=== PATIENT | female | born 1950 | race Caucasian/White ===

== ENCOUNTER 2019-10-24 13:21 | Outpatient (CLI) | payer MEDICARE, OTHER, SELFPAY ==
--- NOTE | 2019-10-24 13:24 | ECG_ITS ---
Measurements Intervals [place] Rate: 57 P: 19 [place]: 213 QRS: -22 QRSD: 96 T: 44 QT: 448 QTc: 438 Interpretive Statements SINUS BRADYCARDIA WITH FIRST DEGREE AV BLOCK ATRIAL PREMATURE COMPLEX LEFT VENTRICULAR HYPERTROPHY AND ST-T CHANGE BORDERLINE R WAVE PROGRESSION, ANTERIOR LEADS ABNORMAL ECG Electronically Signed On 10-24-2019 13:39:49 CDT by Willy Carver D.O.
[2019-10-24 13:57] LABS: Blood Urea Nitrogen 19 mg/dL (7-17); Calcium 9.7 mg/dL (8.4-10.2); Carbon Dioxide 30 mmol/L (22-30); Chloride 101 mmol/L (98-107); Estimated Glomerular Filt Rate 49; Glucose 129 mg/dL (65-105); Potassium 3.9 mmol/L (3.4-5.0); Sodium 137 mmol/L (137-145)
== END 2019-10-24 13:22 | disposition home or self-care (01) ==
LOC: ANHSURGERY 13:24
PROVIDERS: Anesthesiology; Visit Provider Orthopaedic Surgery
DX: I10 Essential (primary) hypertension (principal); Z79.899 Other long term (current) drug therapy; I44.0 Atrioventricular block, first degree
CPT/HCPCS: 36415; 80048; 93005

== ENCOUNTER 2020-01-20 00:46 | Outpatient (CLI) | payer MEDICARE, OTHER, SELFPAY ==
[2020-01-20 16:39] LABS: SARS-CoV-2 RNA PCR Negative
== END 2020-01-20 00:47 | disposition home or self-care (01) ==
LOC: ANHCOVIDDT 00:47
PROVIDERS: Visit Provider Orthopaedic Surgery
DX: Z01.818 Encounter for other preprocedural examination (principal); Z11.59 Encounter for screening for other viral diseases
CPT/HCPCS: 36415; 80048; 87635; C9803; U0003

== ENCOUNTER 2020-01-20 08:53 | Outpatient (CLI) | payer MEDICARE, OTHER, SELFPAY ==
[2020-01-20 09:46] LABS: Blood Urea Nitrogen 20 mg/dL (7-17); Calcium 9.1 mg/dL (8.4-10.2); Carbon Dioxide 31 mmol/L (22-30); Chloride 101 mmol/L (98-107); Estimated Glomerular Filt Rate > 60; Glucose 103 mg/dL (65-105); Sodium 138 mmol/L (137-145)
== END 2020-01-20 08:54 | disposition home or self-care (01) ==
PROVIDERS: Visit Provider Anesthesiology
DX: Z01.818 Encounter for other preprocedural examination (principal); Z79.899 Other long term (current) drug therapy
CPT/HCPCS: 36415; 80048

== ENCOUNTER 2020-01-23 00:51 | Day surgery (SDC) | payer MEDICARE, OTHER, SELFPAY ==
[2019-10-23 15:11] VITALS: BMI 37.8
[2020-01-18 14:34] VITALS: BMI 37.8
[2020-01-23] VITALS (9 sets, daily range): BP systolic 135–162; BP diastolic 53–94; PULSE 60–77; RESP 14–18; TEMP 36.3–36.9; O2SAT 93–100
--- NOTE | 2020-01-23 07:25 | WPDHPUPDATE1 ---
History and Physical Update Update Date/Time: 01/23/20 07:25 History and Physical has been reviewed, including an updated exam of the patient. There are NO changes in the patient's condition. Risks, benefits, and alternatives have been discussed and questions answered. Patient agrees to proceed with procedure.
--- NOTE | 2020-01-23 11:21 | WPDANESEPPF ---
Anes - Initial Pre Proc Eval Procedure: Operation Date: 01/23/20 13:00 Proposed Procedures p Right Shoulder Arthroscopic Subacromial Decompression, Possible Rotator Cuff Repair With Regeneten Patch, Proceed As Indicated - Jose Carreno MD Date/Time: 01/23/20 11:21 Surgeon: Jose Carreno MD Pre Op Diagnosis: Rtight Shoulder Impingement Syndrome Patient Data Age: 69 Gender: F Height: 5 ft 4 in Weight: 100 kg Allergies Allergy/AdvReac Type Severity Reaction Status Date / Time No Known Allergies Allergy Verified 01/22/20 08:44 Home Medications Medication Instructions Recorded Confirmed Type alprazolam 0.5 mg tablet 0.5 mg PO HS 09/07/19 10/24/19 History aspirin 81 mg tablet,delayed 81 mg PO DAILY 09/07/19 10/24/19 History release bisoprolol 10 1 tablet PO HS 09/07/19 01/18/20 History mg-hydrochlorothiazide 6.25 mg tablet doxepin 25 mg capsule 25 mg PO HS 09/07/19 01/18/20 History fenofibrate 160 mg tablet 160 mg PO DAILY 09/07/19 10/24/19 History omeprazole 20 mg tablet,delayed 20 mg PO DAILY 09/07/19 10/24/19 History release sertraline 100 mg tablet 100 mg PO DAILY 09/07/19 10/24/19 History vit C,L-Bm-rqueh-lutein-zeaxan 1 tablet PO BID 01/18/20 01/18/20 History [PreserVision AREDS-2] Patient hx anesthesia problems: none Family hx anesthesia problems: none PMFSH Past Medical History Medical History Depression Hypertension Impingement syndrome of right shoulder Mild acid reflux Partial tear of right rotator cuff Surgical History Surgical History History of cholecystectomy (~12/1977) History of knee replacement (~12/21/17) History of knee replacement (~04/19/18) Family History Family History Sibling Family history of pancreatic cancer Mother Family history of lymphoma Social History Social History Smoking status: Never smoker Alcohol intake: never Anes - Eval Final PreProcedure Day of Procedure 01/23/20 11:21 Patient weight: obese Heart: regular rate and rhythm Lungs: clear to auscultation Airway: Mallampati scale class II Neurological: alert and oriented Last oral intake: >/= 8 hours ASA classification: III Emergent: no Anesthetic plan: proceed Anesthesia type and monitoring: general ETT and standard monitoring Informed Consent: The patient's anesthetic plan and its attendant risks and benefits were discussed with the patient/family/POA. Questions were solicited and answers provided to the satisfaction of the patient/family/POA.
[2020-01-23] MEDS: LACTATED RINGERS 1,000 ML 30 ML IV CONT ×2 (11:45→14:54)
--- NOTE | 2020-01-23 12:27 | WPDANESPNB ---
Anes - Peripheral Nerve Block Date/Time: 01/23/20 12:27 I have discussed with the patient/family/POA the placement of a peripheral nerve block for post-operative pain management, including associated risks, benefits, complications, and side effects. Alternative methods of post-operative analgesia were detailed. Questions were solicited and answers provided to the satisfaction of the patient/family/POA. Time-Out: A pre-procedural Time-Out was completed immediately before starting the procedure and confirmed: Patient Identification, Site, Procedure, Patient Position and the Availability of Requisite Equipment. Clinical Indications: Acute post-operative pain management requested by the operative surgeon. Nerve Block Insertion Note Anes-nerve block: interscalene right Patient position: supine Needle: 22 gauge, stimulating, insulated echogenic needle. Needle length: 50 mm Technique: nerve stimulation lost at (mA) (0.5) and ultrasound Injectate: bupivacaine 0.5% with epi 5 mcg/ml (30) and dexamethasone (mg) (8) Observations: tolerated well Complications: none Procedure start time:: 1215 Procedure end time:: 1225
[2020-01-23] MEDS: ceFAZolin 2 GM/D5W 50 ML 2 GM/50 ML BAG IVPB (12:42)
--- NOTE | 2020-01-23 15:32 | SUR.PHASEI ---
1525: Dr. Hernandez at the bedside talking to patient about why she feels like she can't breathe and made aware of what RN thought was A-fib initially. Patient is in normal sinus now and Dr. Hernandez is ok with everything as of now.
--- NOTE | 2020-01-23 15:34 | P.OP_ITS ---
Procedure Note - Detailed Date of procedure: 01/23/20 Pre-op diagnosis: Rtight Shoulder Impingement Syndrome Post-op diagnosis: other (1. Partial-thickness rotator cuff tear interstitial and articular side. 2. Subacromial impingement syndrome. 3. Biceps tendinosis (partial tear).) Procedure performed: 1. Arthrosocopic rotator cuff repair 2. Arthroscopic subacromial decompression. 3. Biceps tenotomy. Description of procedure: Repair was performed with the [employer] Regeneten bio inductive implant, medium size. Two bone anchors were placed laterally through tendon and into bone. Five tendon anchors were placed medially through the implant and into the tendon. This covered the area of the articular and interstitial supraspinatus tendon tear seen under direct vision and by MRI. The subscapularis tear was only slight and splitting. The fibers were nicely attached and firm. There was no atrophy on the MRI. It was left in situ. The biceps tendon was partially ruptured. Findings consistent with significant tendinosis were also observed on the MRI. A tenotomy was performed. Anesthesia: [facility] Surgeon: Jose Carreno MD Estimated blood loss (mL): 20 Complications: None Disposition: PACU Findings: Operative detail: Preoperative antibiotics were given. An interscalene block was administered in the preoperative area. The patient was bought brought to the operating room. A general anesthetic was administered. The patient was carefully positioned in the beach chair position. The head and neck were carefully positioned. The non operative extremity was also carefully positioned. The shoulder was prepped and draped in the usual sterile fashion. Examination was performed. There were no abnormal findings or instability. Standard posterior and anterior arthroscopic portals were established. Inflow achieved with the arthroscopic pump using saline and epinephrine. The glenohumeral joint was carefully inspected. The articular cartilage appeared healthy. Minimal fraying on the humeral side. Labrum was intact. The supraspinatus showed grade 2 articular sided tearing approximately 30% thickness. This was gently debrided. The subscapularis showed splitting longitudinally but good attachment of the tendon fibers, consistent with less than 10% grade 1 partial tearing. The subscapularis tendon was left in situ. The anterior supraspinatus cuff was marked medially with the spinal needle. Attention was turned to the subacromial space. A complete bursectomy was performed. A modest acromioplasty was performed. There did appear to be some fraying at the anterolateral acromion and a small spur at that area. The bursal side cuff appeared essentially normal. There was some hyperemia. There was a soft spot consistent with the area of the articular side and interstitial tear. It was elected to proceed with repair using the Regeneten implant. The implant was introduced laterally through an accessory portal. The medium-size was used. Covered the rotator cuff area very well of the supraspinatus. Five medial TANESHA anchors were inserted through the collagen graft implant and into the rotator cuff. Lateral margin was repaired with 2 peek anchors through the tendon and into bone. Excellent coverage and stability was obtained. The arthroscopic instruments were removed. The wounds were closed with 3-0 Monocryl subcuticular suture and steri strips. There were no complications. A sling was applied and the patient brought to the recovery room.
== END 2020-01-23 17:15 | disposition home or self-care (01) ==
PROVIDERS: Visit Provider Orthopaedic Surgery
PROC: (CPT 29805; principal; 2020-01-23 13:00)
DX: M75.41 Impingement syndrome of right shoulder (principal); M75.111 Incomplete rotator cuff tear or rupture of right shoulder, not specified as traumatic; M67.813 Other specified disorders of tendon, right shoulder; G89.18 Other acute postprocedural pain; I10 Essential (primary) hypertension; K21.9 Gastro-esophageal reflux disease without esophagitis; Z96.659 Presence of unspecified artificial knee joint; F32.9 Major depressive disorder, single episode, unspecified; Z79.82 Long term (current) use of aspirin; E66.9 Obesity, unspecified; Z68.37 Body mass index [BMI] 37.0-37.9, adult
CPT/HCPCS: 29827; 29826; 64415; A4565; J0131; J0171; J0330; J0461; J0690; J1100; J1170; J1885; J2250; J2270; J2370; J2405; J2704; J2710; J2795; J3010; J7120